=== PATIENT | male | born 1995 | race Caucasian/White ===

== ENCOUNTER 2021-01-29 18:52 | Emergency (ER) | payer OTHER ==
[~2021-01-29] VITALS: Ht 182.9 cm; Wt 77.1 kg
--- NOTE | 2021-01-29 19:08 | NUR ---
PT AMBULATED TO ER WITH C/O OF LEFT SHOULDER DISLOCATION AFTER PLAYING SOFTBALL SOD[employer]. A/O X4, NO SOB OR LABORED BREATHING, AFEBRILE. DENIES ANY CP/PRESSURE.
--- NOTE | 2021-01-29 19:19 | NUR ---
DR. JOE AT BEDSIDE, MSE IN PROGRESS.
--- NOTE | 2021-01-29 19:22 | NUR ---
XRAY AT BEDSIDE.
[2021-01-29] MEDS ORDERED: ETOMIDATE 20 MG/10 ML VIAL ONE (19:48)
[2021-01-29] MEDS ORDERED: OXYCODONE/APAP 5-325 MG TABLET PO ONE (20:15)
--- NOTE | 2021-01-29 20:15 | NUR ---
CLOSED REDUCTION OF LEFT SHOULDER WITH MODERATE SEDATION PERFORMED BY Jim JESUS RT AND RN AT BEDSIDE. PROCEDURE NOTED TO BE SUCCESSFUL AND LEFT SHOULDER RE-LOCATED. PT'S VSS.
--- NOTE | 2021-01-29 20:18 | NUR ---
Xray at bedside.
[2021-01-29] MEDS ORDERED: HYDR-4209 PO (20:23)
[2021-01-29] MEDS ORDERED: OXYCODONE/APAP 5-325 MG TABLET ONE (20:29)
[2021-01-29] MEDS ORDERED: ETOMIDATE 20 MG/10 ML VIAL IV ONE ×2 (20:45)
--- NOTE | 2021-01-29 21:25 | NUR ---
Patient discharged to home in stable condition. A/O x4, no changes in LOC. Denies any pain/discomfort upon discharge. Written and verbal after care instructions given. Patient verbalizes understanding of instructions. Stressed follow up or return to ER for worsening s/s. Steady gait, picked up by roomate.
[2021-01-29 21:32] VITALS: BP 136/84
== END 2021-01-29 21:30 | disposition home or self-care (01) ==
LOC: ER 18:56
DX: M24.412 Recurrent dislocation, left shoulder (principal); G40.909 Epilepsy, unspecified, not intractable, without status epilepticus
CPT/HCPCS: 23650; 73020; 73030; 99284; J3490; A4663